=== PATIENT | female | born 1980 | race Hispanic/Latino ===

== ENCOUNTER 2017-04-02 10:06 | Inpatient (IN) | payer MEDICAID ==
[2017-04-02] MEDS ORDERED: Sodium Chloride 0.9% 1,000 ML IV STA (10:42)
--- NOTE | 2017-04-02 10:47 | ED PDOC ---
HPI: Chest Pain Time Seen by Provider: 04/02/17 10:28 Chief Complaint (Provider): Chest and Left Rib Pain History Per: Patient History/Exam Limitations: no limitations Onset/Duration Of Symptoms: Days (x 2-3 days) Current Symptoms Are (Timing): Still Present Additional Complaint(s): Cora is a 36 y/o female who presents to the ED complaining of difficulty breathing, chest pain, and left rib pain, onset 2-3 days ago. Patient also complains of cough, and has been getting over a cold. Also describes swelling to left hand and right arm for the past 1 week, and notes that a mouse bit her left finger 1 week ago. Self-medicating with clindamycin (leftover from old Rx) , Percocet, Tylenol, Advil, and Naprosyn. Patient reports history of chronic back pain and TMJ, which she is prescribed Percocet for. Pain is described as throbbing. Patient denies taking any medication for pain relief in the past 2 days. Denies headache, dizziness, abdominal pain, nausea, diarrhea, and vomiting. Patient requests pain medication. States that Toradol does not relieve her pain , and she needs Percocet. Patient told nurse that arm swelling was noticed after a spider bite, and states she has had arm surgery. PMD: Unknown Past Medical History Reviewed: Historical Data, Nursing Documentation, Vital Signs Vital Signs: Last Vital Signs Temp 101 F H 04/02/17 10:57 Pulse 112 H 04/02/17 10:57 Resp 18 04/02/17 10:57 BP 143/94 H 04/02/17 10:57 Pulse Ox 99 04/02/17 10:57 - Medical History PMH: Back Problems, Depression - Surgical History Surgical History: (x 1) - Family History Family History: States: Unknown Family Hx - Social History Drugs: Other (IV drug user, disontinued months ago) - Home Medications Home Medications: Ambulatory Orders Medication Instructions Recorded Amoxicillin 500 mg PO BID #14 cap 03/07/16 Fluconazole [Diflucan] 150 mg PO ONCE #1 tab 03/07/16 Clindamycin [Cleocin] 300 mg PO QID #40 cap 08/15/16 oxyCODONE/Acetaminophen [Percocet 1 ea PO Q6H PRN #15 tab 08/15/16 5/325 mg Tab] - Allergies Allergies/Adverse Reactions: Allergies Allergy/AdvReac Type Severity Reaction Status Date / Time No Known Drug Allergies Allergy Verified 08/15/16 03:03 Penicillins AdvReac yeast Verified 08/15/16 00:15 infection Review of Systems ROS Statement: Except As Marked, All Systems Reviewed And Found Negative Cardiovascular: Positive for: Chest Pain Respiratory: Positive for: Cough, Other (Difficulty breathing, left rib pain) Gastrointestinal: Negative for: Nausea, Vomiting, Abdominal Pain, Diarrhea Musculoskeletal: Positive for: Arm Pain (With left hand and right arm swelling) Neurological: Negative for: Headache, Dizziness Physical Exam - Reviewed Nursing Documentation Reviewed: Yes Vital Signs Reviewed: Yes - Physical Exam Appears: Positive for: Uncomfortable Head Exam: Positive for: ATRAUMATIC, NORMAL INSPECTION, NORMOCEPHALIC Skin: Positive for: Normal Color, Warm, Dry Eye Exam: Positive for: EOMI, Normal appearance, PERRL Neck: Positive for: Normal, Painless ROM, Supple Cardiovascular/Chest: Positive for: Regular Rate, Rhythm. Negative for: Chest Non Tender, Murmur Respiratory: Positive for: Normal Breath Sounds (Lungs clear bilaterally), Other (Left rib tenderness) Pulses-Radial (L): 2+ (and 2+ ulnar pulse) Pulses-Radial (R): 2+ (2+ ulnar pulse) Gastrointestinal/Abdominal: Positive for: Normal Exam, Soft. Negative for: Tenderness Back: Positive for: Normal Inspection. Negative for: Vertebral Tenderness Extremity: Positive for: Normal ROM (to legs), Swelling (Right forearm with indurated erythematous raised area, with tenderness, about 5-6 cm in diameter. Left hand is swollen, has pain with any ROM. No bite mohr noted. Streaks of erythema on left forearm.) Neurologic/Psych: Positive for: Alert, Oriented - Laboratory Results Result Diagrams: 04/02/17 11:44 04/02/17 11:44 Interpretation Of Abn Labs: 31.2 wbc - ECG ECG: Positive for: Interpreted By Me, Viewed By Me ECG Rhythm: Positive for: Normal QRS, Normal ST Segment, Sinus Tachycardia - Radiology X-Ray: Interpreted by Me, Viewed By Me X-Ray Interpretation: Infiltrates (LLL) - Progress ED Course And Treament: 1302: Stable. AAOx3. Pain controlled. Will need IV antibiotics for cellulitis and pneumonia. Will need admit. Meets sepsis criteria. 1307: Spoke with Dr. Degroot. Will admit tele. Likely IV drug use related cellulits. - Critical Care Total Time (In Min): 30 Documented Critical Care: Time excludes all time spent performint seperately billable procedures Medical Decision Making Medical Decision Making: Time: 10:41 Initial Impression: Chest and Left Rib pain Initial Plan: --Labs --EKG --CXR 2 views --NS IV 1000 ml at 1000 mls/hr --Dilaudid 1 mg IV --Pending reevaluation Time: 11:20 --Patient now admits she was an IV drug user, but stopped several months ago. --Ordered US Duplex Upper Extremities Time: 12:08 --Toxicology positive for urine opiates, cocaine metabolites, and cannabinoids Scribe Attestation: Documented by Cindy Ruano, acting as a scribe for Orion Shafer MD Provider Scribe Attestation: All medical record entries made by the Scribe were at my direction and personally dictated by me. I have reviewed the chart and agree that the record accurately reflects my personal performance of the history, physical exam, medical decision making, and the department course for this patient. I have also personally directed, reviewed, and agree with the discharge instructions and disposition. Disposition - Clinical Impression Clinical Impression: Pneumonia, Cellulitis, Sepsis, Drug abuse - Patient ED Disposition Is Patient to be Admitted: Yes Counseled Patient/Family Regarding: Studies Performed, Diagnosis - Disposition Disposition Time: 13:08 Condition: FAIR - Pt Status Changed To: Hospital Disposition Of: Inpatient - Admit Certification Admit to Inpatient:: After my assessment, the patient will require hospitalization for at least two midnights. This is because of the severity of symptoms shown, intensity of services needed, and/or the medical risk in this patient being treated as an outpatient. - POA Present On Arrival: None Core Measure Indicators: Pneumonia
[2017-04-02 11:52] LABS: VENOUS BLOOD GAS PCO2 40 mmHg (40-60); VENOUS BLOOD PH 7.43 (7.32-7.43)
[2017-04-02 12:09] LABS: BASO % 0.1 % (0.0-2.0); HEMATOCRIT 36.1 % (34.0-47.0); LYMPH # 0.6 K/uL (1.0-4.3); LYMPH % 1.9 % (20.0-40.0); MEAN CORPUSCULAR HEMOGLOBIN 27.3 pg (27.0-31.0); MEAN CORPUSCULAR HGB CONC 33.8 g/dL (33.0-37.0); MEAN PLATELET VOLUME 8.3 fl (7.2-11.7); MONO # 1.3 K/uL (0.0-0.8); MONO % 4.1 % (0.0-10.0); NEUT # 29.3 K/uL (1.8-7.0); NEUT % 93.9 % (50.0-75.0); PLATELET COUNT 369 K/uL (130-400); RED CELL DISTRIBUTION WIDTH 14.1 % (11.5-14.5)
[2017-04-02 12:18] LABS: RBC URINE 1 /hpf (0-3); URINE BILIRUBIN NEGATIVE (NEGATIVE); URINE BLOOD MODERATE (NEGATIVE); URINE COLOR AMBER (YELLOW); URINE GLUCOSE (UA) NEG (Normal); URINE KETONE 20 mg/dL (NEGATIVE); URINE LEUKOCYTE ESTERASE TRACE Leu/uL (Negative); URINE PROTEIN 100 mg/dL (NEGATIVE)
[2017-04-02 12:19] LABS: ALKALINE PHOSPHATASE 150 U/L (38-126); ALT/SGPT 42 U/L (9-52); AST/SGOT 26 U/L (14-36); BILIRUBIN,TOTAL 1.1 mg/dl (0.2-1.3); BLOOD UREA NITROGEN 7 mg/dl (7-17); CALCIUM 9.2 mg/dL (8.4-10.2); CARBON DIOXIDE 22 mmol/L (22-30); CHLORIDE 100 mmol/L (98-107); GFR AFRICAN-AMERICAN > 60; GLUCOSE,RANDOM 133 mg/dL (65-105); POTASSIUM 3.7 MMOL/L (3.6-5.0); SODIUM 135 mmol/l (132-148); TOTAL PROTEIN 8.2 G/DL (6.3-8.2)
[2017-04-02 12:29] LABS: WHITE BLOOD COUNT 31.2 K/uL (4.8-10.8)
[2017-04-02] MEDS ORDERED: Piperacillin/Tazobact 3.375 GM in Sodium Chloride 0.9% 100 ML IV STA (13:04)
--- NOTE | 2017-04-02 13:09 | US ---
PROCEDURE: Nonvascular ultrasound right upper extremity HISTORY: eval for abscess on forearm COMPARISON: None TECHNIQUE: Normal flow, augmentation and compressibility were noted. No evidence of deep vein thrombosis. FINDINGS: Considerable or soft tissue swelling right forearm. No drainable collection. IMPRESSION: Extensive soft tissue swelling right forearm. No vascular abnormalities identified nor is there evidence of drainable collection.
[2017-04-02] MEDS ORDERED: Piperacillin/Tazobact 3.375 gm Inj IVPB ONE (13:10)
--- NOTE | 2017-04-02 13:18 | US ---
PROCEDURE: Right Upper Extremity Venous Duplex Exam There was cell HISTORY: pain PRIORS: None. TECHNIQUE: Right upper extremity, internal jugular, subclavian, axillary, brachial, ulnar, radial, basilic and upper cephalic veins were evaluated. Flow was assessed with color Doppler, compressibility, assessment of phasic flow and augmentation response. Report prepared by cardiovascular radiologic technologist. FINDINGS: RIGHT: 1. Internal Jugular: 1.1. Compressibility - Fully compressible: Thrombus - None : Flow - Phasic: Augmentation -Normal: Reflux - None. 2. Subclavian: 2.1. Compressibility - Fully compressible: Thrombus - None : Flow - Phasic: Augmentation -Normal: Reflux - None. 3. Axillary: 3.1. Compressibility - Fully compressible: Thrombus - None : Flow - Phasic: Augmentation -Normal: Reflux - None. 4. Brachial: 4.1. Compressibility - Fully compressible: Thrombus - None: Flow - Phasic: Augmentation -Normal: Reflux - None. 5. Ulnar: 5.1. Compressibility - Fully compressible: Thrombus - None: Flow - Phasic: Augmentation -Normal: Reflux - None. 6. Radial: 6.1. Compressibility - Fully compressible: Thrombus - None: Flow - Phasic: Augmentation - Normal: Reflux - None. 7. Cephalic: 7.1. Not identified. 8. Basilic: 8.1. Compressibility - Fully compressible: Thrombus - None: Flow - Phasic: Augmentation -Normal: Reflux - None. OTHER FINDINGS: Right: None. IMPRESSION: Right: No evidence of vein thrombosis of the right upper extremity with excellent venous flow. Normal valve function noted of the right side. Limitations of the current examination: Nonvisualization left cephalic vein. Normal venous flow noted in the left internal jugular and left subclavian veins.
--- NOTE | 2017-04-02 14:58 | CP.PCM.HP ---
History of Present Illness - History of Present Illness History of Present Illness: CC: arm pain HPI This is a 36-year-old female with past medical history significant for IV drug abuse, polysubstance abuse who presents to the emergency room with a several week history? of bilateral upper extremity swelling, erythema, moderate to severe pain, sharp and stabbing in nature, with limited range of motion. Patient appears to be an unreliable historian. She states that she sustained a bite by a mouse, but also was injecting heroin and began to experience the erythema and pain about a week after. Patient also complained of upper respiratory infection symptoms. In the emergency room ultrasound and Dopplers of upper extremities were negative, and Zosyn and Vancomycin were initiated. Patient was febrile 101, tachycardic at 112 blood pressure 143/94 respiratory rate 16. She is saturating 100% on room air. WBC 31.2, chemistry unremarkable, urine also unremarkable, urine drug screen was positive for opiates, cocaine as well as cannabinoids. Chest x-ray showed left lower lobe infiltrate. Patient will be admitted to [facility] for IV antibiotics for both cellulitis of bilateral upper extremities as well as left lower lobe pneumonia. ROS: per HPI, 12 systems reviewed and negative PMH: denies PSH: c section FH: denies SH: admits to cocaine, heroin, marijuana use Meds: as below Allergies: PCN Vitals: reviewed and currently stable Exam: GEN: WDWN, alert, cooperative HEENT: NCAT, PERRL, EOMI NECK: supple, no JVD, no lymphadenopathy CARDIAC: +S1S2 RRR LUNG: CTAB No WRR ABD: SOFT NT ND BSX4 NO MASSES NO HSM EXT: equal pulses bilaterally, R Forearm area of cellulitic changes, erythema induration no fluctuation, edematous, LUE / hand, cellulitic changes, erythmatous and tender with streaking up the arm NEURO: AAOx3 SKIN warm, dry PSYCH normal mood, normal affect Labs: 04/02/17 04/02/17 04/02/17 11:56 11:45 11:44 WBC RBC Hgb Hct MCV MCH MCHC RDW Plt Count MPV Neut % (Auto) Lymph % (Auto) [place] % (Auto) Eos % (Auto) Baso % (Auto) Neut # Lymph # [place] # Eos # Baso # Neutrophils % (Manual) Band Neutrophils % Lymphocytes % (Manual) Monocytes % (Manual) Basophils % (Manual) Platelet Estimate Large Platelets Anisocytosis (manual) pO2 37 VBG pH 7.43 VBG pCO2 40 VBG HCO3 25.8 VBG Total CO2 27.7 VBG O2 Sat (Calc) 77.8 H VBG Base Excess 2.0 VBG Potassium 3.7 Glucose 139 H Lactate 1.1 FiO2 21.0 Sodium 133.0 135 Potassium 3.7 Chloride 102.0 100 Carbon Dioxide 22 Anion Gap 16 BUN 7 Creatinine 0.6 L Est GFR ( Amer) > 60 Est GFR (Non-Af Amer) > 60 Random Glucose 133 H Calcium 9.2 Total Bilirubin 1.1 AST 26 ALT 42 Alkaline Phosphatase 150 H Total Creatine Kinase 54 Troponin I < 0.0120 Total Protein 8.2 Albumin 4.2 Globulin 4.1 H Albumin/Globulin Ratio 1.0 Venous Blood Potassium 3.7 Urine Color Kya Urine Clarity Slighty-cloudy Urine pH 6.0 Ur Specific [place] 1.024 Urine Protein 100 Urine Glucose (UA) Neg Urine Ketones 20 Urine Blood Moderate Urine Nitrate Negative Urine Bilirubin Negative Urine Urobilinogen 4.0 H Ur Leukocyte Esterase Trace Urine RBC (Auto) 1 Urine Opiates Screen Urine Methadone Screen Ur Barbiturates Screen Ur Phencyclidine Scrn Ur Amphetamines Screen U Benzodiazepines Scrn U Oth Cocaine Metabols U Cannabinoids Screen 04/02/17 04/02/17 11:44 11:19 WBC 31.2 H D RBC 4.46 Hgb 12.2 Hct 36.1 MCV 81.0 D MCH 27.3 MCHC 33.8 RDW 14.1 Plt Count 369 MPV 8.3 Neut % (Auto) 93.9 H Lymph % (Auto) 1.9 L [place] % (Auto) 4.1 Eos % (Auto) 0.0 Baso % (Auto) 0.1 Neut # 29.3 H Lymph # 0.6 L [place] # 1.3 H Eos # 0.0 Baso # 0.0 Neutrophils % (Manual) 86 H Band Neutrophils % 2 Lymphocytes % (Manual) 5 L Monocytes % (Manual) 6 Basophils % (Manual) 1 Platelet Estimate Normal Large Platelets Present Anisocytosis (manual) Slight pO2 VBG pH VBG pCO2 VBG HCO3 VBG Total CO2 VBG O2 Sat (Calc) VBG Base Excess VBG Potassium Glucose Lactate FiO2 Sodium Potassium Chloride Carbon Dioxide Anion Gap BUN Creatinine Est GFR ( Amer) Est GFR (Non-Af Amer) Random Glucose Calcium Total Bilirubin AST ALT Alkaline Phosphatase Total Creatine Kinase Troponin I Total Protein Albumin Globulin Albumin/Globulin Ratio Venous Blood Potassium Urine Color Urine Clarity Urine pH Ur Specific [place] Urine Protein Urine Glucose (UA) Urine Ketones Urine Blood Urine Nitrate Urine Bilirubin Urine Urobilinogen Ur Leukocyte Esterase Urine RBC (Auto) Urine Opiates Screen Positive H Urine Methadone Screen Negative Ur Barbiturates Screen Negative Ur Phencyclidine Scrn Negative Ur Amphetamines Screen Negative U Benzodiazepines Scrn Negative U Oth Cocaine Metabols Positive H U Cannabinoids Screen Positive H Rads: CXR LLL PNA US UPPER EXTREMITY SOFT TISSUE SWELLING DOPPLER NEGATIVE FOR THROMBUS Active Medications: Allergies No Known Drug Allergies Allergy (Verified 08/15/16 03:03) Penicillins Adverse Reaction (Verified 08/15/16 00:15) yeast infection Height & Weight Height 5 ft 3 in Weight 150 lb Start Date/Time Active Medications 04/02/17 14:58 Ketorolac [Toradol] 30 mg IVP Q6 PRN 04/02/17 14:59 Ketorolac [Toradol] 15 mg IVP Q6 PRN 04/02/17 15:00 Ibuprofen [Motrin Tab] 400 mg PO Q6 PRN Ibuprofen [Motrin Tab] 400 mg PO Q6H PRN Ondansetron [Zofran Inj] 4 mg IVP Q6 PRN 04/02/17 17:00 Docusate [Colace] 100 mg PO BID 04/02/17 21:00 Vancomycin [Vancomycin Inj] 1 gm Sodium Chloride 0.9% 250 ml IVPB Q12 04/03/17 09:00 Enoxaparin [Lovenox] 40 mg SC DAILY Assessment and Plan: This is a 36-year-old female with past medical history significant for IV drug abuse, polysubstance abuse who presents to the emergency room with a several week history? of bilateral upper extremity swelling, erythema, moderate to severe pain, sharp and stabbing in nature, with limited range of motion. Patient appears to be an unreliable historian. She states that she sustained a bite by a mouse, but also was injecting heroin and began to experience the erythema and pain about a week after. Patient also complained of upper respiratory infection symptoms. In the emergency room ultrasound and Dopplers of upper extremities were negative, and Zosyn and Vancomycin were initiated. Patient was febrile 101, tachycardic at 112 blood pressure 143/94 respiratory rate 16. She is saturating 100% on room air. WBC 31.2, chemistry unremarkable, urine also unremarkable, urine drug screen was positive for opiates, cocaine as well as cannabinoids. Chest x-ray showed left lower lobe infiltrate. Patient will be admitted to [facility] for IV antibiotics for both cellulitis of bilateral upper extremities as well as left lower lobe pneumonia. CELLULITIS BILATERAL FOREARMS 2/2 DRUG RELATED SEPSIS R>L, erythematous, induration, no fluctuant areas, L sided streaking up forearm WBC 31.2. tachy 112, febrile 101 on admission US and Dopplers were negative initiated on Vanc and Zosyn day 1 Pain control: Toradol for mod and severe pain, Motrin for mild pain LLL PNEUMONIA URI sx for about one week CXR +infiltrate LL febrile, WBC 31.2 on admission pt on Vanc and Zosyn coverage for cellulitis Hx IVDU, POLYSUBSTANCE ABUSE patient given toradol for pain control no current signs of withdrawal UDS + opioids, cocaine, cannabinoids VTE ppx lovenox Present on Admission - Present on Admission Any Indicators Present on Admission: No Past Patient History - Infectious Disease Hx of Infectious Diseases: None - Past Social History Drugs: Other (IV drug user, disontinued months ago) - GASTROINTESTINAL Hx Irritable Bowel: Yes - PSYCHIATRIC Hx Depression: Yes - SURGICAL HISTORY Hx Surgeries: Yes Hx Section: Yes Other/Comment: right arm surgery - ANESTHESIA Hx Anesthesia: Yes Meds Allergies/Adverse Reactions: Allergies Allergy/AdvReac Type Severity Reaction Status Date / Time No Known Drug Allergies Allergy Verified 08/15/16 03:03 Penicillins AdvReac yeast Verified 08/15/16 00:15 infection Results - Vital Signs Recent Vital Signs: Last Vital Signs Temp 101 F H 04/02/17 13:16 Pulse 112 H 04/02/17 10:57 Resp 18 04/02/17 10:57 BP 143/94 H 04/02/17 10:57 Pulse Ox 99 04/02/17 10:57 - Labs Result Diagrams: 04/02/17 11:44 04/02/17 11:44
[2017-04-02 15:04] LABS: BASOPHIL 1 % (0-2); LARGE PLATELETS PRESENT; NEUTROPHIL 86 % (42-75); TOTAL CELLS COUNTED 100
--- NOTE | 2017-04-02 16:08 | RAD ---
HISTORY: dyspnea COMPARISON: Chest x-ray performed 03/07/16 TECHNIQUE: Chest PA and lateral FINDINGS: LUNGS: Small left pleural effusion and/or consolidation. No definite pneumothorax. Please note that chest x-ray has limited sensitivity for the detection of pulmonary masses. CARDIOVASCULAR: Heart size appears within normal limits. OSSEOUS STRUCTURES: No acute osseous abnormality identified. VISUALIZED UPPER ABDOMEN: Unremarkable. OTHER FINDINGS: None. IMPRESSION: Small left pleural effusion and/or consolidation. Study has been marked for PA review.
--- NOTE | 2017-04-02 16:51 | CARD ---
APPROVED REPORT EKG Measurement Heart [id number] <Conclusion> Sinus tachycardia Possible Left atrial enlargement Borderline ECG
[2017-04-03 07:47] LABS: BASO % 0.1 % (0.0-2.0); HEMATOCRIT 35.1 % (34.0-47.0); LYMPH # 0.7 K/uL (1.0-4.3); LYMPH % 2.7 % (20.0-40.0); MEAN CELL VOLUME 81.9 fl (81.0-99.0); MEAN CORPUSCULAR HEMOGLOBIN 27.4 pg (27.0-31.0); MEAN CORPUSCULAR HGB CONC 33.5 g/dL (33.0-37.0); MEAN PLATELET VOLUME 8.1 fl (7.2-11.7); MONO # 1.2 K/uL (0.0-0.8); MONO % 4.4 % (0.0-10.0); NEUT # 24.5 K/uL (1.8-7.0); NEUT % 92.8 % (50.0-75.0); PLATELET COUNT 370 K/uL (130-400); RED CELL DISTRIBUTION WIDTH 14.3 % (11.5-14.5); WHITE BLOOD COUNT 26.4 K/uL (4.8-10.8)
[2017-04-03 07:59] LABS: BLOOD UREA NITROGEN 10 mg/dl (7-17); CALCIUM 8.9 mg/dL (8.4-10.2); CARBON DIOXIDE 22 mmol/L (22-30); CHLORIDE 103 mmol/L (98-107); GFR AFRICAN-AMERICAN > 60; GLUCOSE,RANDOM 138 mg/dL (65-105); POTASSIUM 3.6 MMOL/L (3.6-5.0); SODIUM 135 mmol/l (132-148)
[2017-04-03 08:49] LABS: NEUTROPHIL 94 % (42-75); TOTAL CELLS COUNTED 100
[2017-04-03] MEDS: Enoxaparin 40 mg Syringe SC SCH (11:13)
--- NOTE | 2017-04-03 15:24 | CP.PCM.PN ---
Subjective - Date & Time of Evaluation Date of Evaluation: 04/03/17 Time of Evaluation: 10:40 - Subjective Subjective: Pt seen and examined. Complained of pain specially on movement of left arm although right arm appeared more swollen and red. Objective - Vital Signs/Intake and Output Vital Signs (last 24 hours): Temp Pulse Resp BP Pulse Ox 99.7 F H 103 H 20 134/88 94 L 04/03/17 08:20 04/03/17 08:20 04/03/17 08:20 04/03/17 08:20 04/03/17 08:20 - Medications Medications: Current Medications Docusate Sodium (Colace) 100 mg PO BID [facility] Last Admin: 04/03/17 11:18 Dose: Not Given Enoxaparin Sodium (Lovenox) 40 mg SC DAILY [facility] PRN Reason: Protocol Last Admin: 04/03/17 11:13 Dose: 40 mg Vancomycin HCl 1 gm/ Sodium (Chloride) 250 mls @ 166.667 mls/hr IVPB Q12 [facility] Last Admin: 04/03/17 11:38 Dose: 166.667 mls/hr Ibuprofen (Motrin Tab) 400 mg PO Q6H PRN PRN Reason: Pain, Mild (1-3) Last Admin: 04/02/17 22:27 Dose: 400 mg Ibuprofen (Motrin Tab) 400 mg PO Q6 PRN PRN Reason: Fever >100.4 F Ketorolac Tromethamine (Toradol) 30 mg IVP Q6 PRN PRN Reason: Pain, severe (8-10) Last Admin: 04/02/17 15:26 Dose: 30 mg Ketorolac Tromethamine (Toradol) 15 mg IVP Q6 PRN PRN Reason: Pain, moderate (4-7) Ondansetron HCl (Zofran Inj) 4 mg IVP Q6 PRN PRN Reason: Nausea/Vomiting - Labs Labs: 04/03/17 07:30 04/03/17 07:30 - Constitutional Appears: No Acute Distress - Head Exam Head Exam: ATRAUMATIC - Eye Exam Eye Exam: absent: Scleral icterus - ENT Exam ENT Exam: Mucous Membranes Moist - Neck Exam Neck Exam: absent: Meningismus - Respiratory Exam Respiratory Exam: absent: Rhonchi, Wheezes, Respiratory Distress - Cardiovascular Exam Cardiovascular Exam: REGULAR RHYTHM, +S1, +S2 - GI/Abdominal Exam GI & Abdominal Exam: Soft. absent: Tenderness - Rectal Exam Rectal Exam: Deferred - Extremities Exam Extremities Exam: absent: Normal Inspection (both arms swollen but right arm appeared more inflammed.) - Neurological Exam Neurological Exam: Alert, Oriented x3 - Psychiatric Exam Psychiatric exam: Normal Affect - Skin Skin Exam: Dry, Intact Assessment and Plan - Assessment and Plan (Free Text) Assessment: 36 yo female with history of IV drug abuse came in with bilateral arm swelling with pain and erythema limiting her ROM. She claimed she used her arm shooting heroin a week before the onset of symptoms. She was admitted with cellulitis of both arms and was noted to have fever and tachycardia. 1. Cellulitis of Both Arms still tachycardic with low grade fever WBC remained high at 26.4 but coming down from 31.2 continue IV Vanco and Zosyn pain management 2. Pneumonia denied SOB but admitted left sided chest pain on coughing CXray: small left pleural effusion or consolidation continue IV Vanco and Zosyn Vanco trough in am 3. DVT prophylaxis Lovenox 40mg SC daily
[2017-04-03 15:27] VITALS: BMI 26.5
--- NOTE | 2017-04-03 16:18 | CT ---
PROCEDURE: CT Chest without contrast HISTORY: left lower lobe pneumonia or pleural effusion COMPARISON: April 02, 2017. Chest x-ray TECHNIQUE: Contiguous axial images were obtained through the chest without intravenous contrast enhancement. Sagittal and coronal reconstructions were performed. Radiation dose (DLP): 198.85 mGy-cm. This CT exam was performed using one or more of the following dose reduction techniques: Automated exposure control, adjustment of the mA and/or kV according to patient size, and/or use of iterative reconstruction technique. FINDINGS: LUNGS: Consolidative changes multiple segments left lower lobe. Findings are likely compressive atelectasis related to left pleural effusion. MEDIASTINUM: Unremarkable thoracic aorta. No aneurysm. Normal sized heart. Main pulmonary artery unremarkable. No vascular congestion. No lymphadenopathy. PLEURA: Auto size and partially loculated left pleural effusion. Associated compressive atelectasis left lower lobe. BONES: No fracture. No destructive lesion. UPPER ABDOMEN: Grossly unremarkable. OTHER FINDINGS: None. IMPRESSION: Complex, partially loculated left pleural effusion. Associated compressive atelectasis affecting multiple segments of the left lower lobe. No additional suspicious or acute abnormalities.
[2017-04-04] MEDS: Enoxaparin 40 mg Syringe SC SCH (09:23)
--- NOTE | 2017-04-04 15:32 | CP.PCM.PN ---
Subjective - Date & Time of Evaluation Date of Evaluation: 04/04/17 Time of Evaluation: 10:45 - Subjective Subjective: Pt seen and examined. Feeling better Objective - Vital Signs/Intake and Output Vital Signs (last 24 hours): Temp Pulse Resp BP Pulse Ox 99.6 F 91 H 18 135/85 96 04/04/17 07:46 04/04/17 07:46 04/04/17 07:46 04/04/17 07:46 04/04/17 07:46 - Medications Medications: Current Medications Docusate Sodium (Colace) 100 mg PO BID [facility] Last Admin: 04/04/17 09:23 Dose: Not Given Enoxaparin Sodium (Lovenox) 40 mg SC DAILY [facility] PRN Reason: Protocol Last Admin: 04/04/17 09:23 Dose: 40 mg Vancomycin HCl 1 gm/ Sodium (Chloride) 250 mls @ 166.667 mls/hr IVPB Q12 [facility] Last Admin: 04/04/17 09:24 Dose: 166.667 mls/hr Ibuprofen (Motrin Tab) 400 mg PO Q6H PRN PRN Reason: Pain, Mild (1-3) Last Admin: 04/04/17 09:25 Dose: 400 mg Ibuprofen (Motrin Tab) 400 mg PO Q6 PRN PRN Reason: Fever >100.4 F Ketorolac Tromethamine (Toradol) 30 mg IVP Q6 PRN PRN Reason: Pain, severe (8-10) Last Admin: 04/02/17 15:26 Dose: 30 mg Ketorolac Tromethamine (Toradol) 15 mg IVP Q6 PRN PRN Reason: Pain, moderate (4-7) Ondansetron HCl (Zofran Inj) 4 mg IVP Q6 PRN PRN Reason: Nausea/Vomiting Zolpidem Tartrate (Ambien) 5 mg PO HS PRN PRN Reason: Sleep Last Admin: 04/04/17 01:51 Dose: 5 mg - Labs Labs: 04/03/17 07:30 04/03/17 07:30 - Constitutional Appears: No Acute Distress - Head Exam Head Exam: ATRAUMATIC - Eye Exam Eye Exam: absent: Scleral icterus - ENT Exam ENT Exam: Mucous Membranes Moist - Neck Exam Neck Exam: absent: Meningismus - Respiratory Exam Respiratory Exam: absent: Rhonchi, Wheezes, Respiratory Distress - Cardiovascular Exam Cardiovascular Exam: REGULAR RHYTHM, +S1, +S2 - GI/Abdominal Exam GI & Abdominal Exam: Soft. absent: Tenderness - Rectal Exam Rectal Exam: Deferred - Neurological Exam Neurological Exam: Alert, Oriented x3 - Psychiatric Exam Psychiatric exam: Normal Affect - Skin Skin Exam: Dry, Intact Assessment and Plan - Assessment and Plan (Free Text) Assessment: 36 yo female with history of IV drug abuse came in with bilateral arm swelling with pain and erythema limiting her ROM. She claimed she used her arm shooting heroin a week before the onset of symptoms. She was admitted with cellulitis of both arms and was noted to have fever and tachycardia. 1. Cellulitis of Both Arms had low grade fever in the direct support professional home health continue IV Vanco and Zosyn pain management will discharge in am if she continue to be afebrile until tomotrrow 2. Pneumonia denied SOB but admitted left sided chest pain on coughing CXray: small left pleural effusion or consolidation CT scan of chest: left loculated pleural effusion continue IV Vanco and Zosyn Vanco trough <5 3. Gram + Cocci in Cluster in urine patient did not mention any urinary complaint on Vanco and Zosyn which cover gram + cocci 4. DVT prophylaxis Lovenox 40mg SC daily
[2017-04-04 16:24] LABS: BASO % 0.1 % (0.0-2.0); EOS % 0.1 % (0.0-4.0); HEMATOCRIT 33.1 % (34.0-47.0); LYMPH # 1.3 K/uL (1.0-4.3); LYMPH % 6.6 % (20.0-40.0); MEAN CELL VOLUME 81.4 fl (81.0-99.0); MEAN CORPUSCULAR HEMOGLOBIN 26.8 pg (27.0-31.0); MEAN CORPUSCULAR HGB CONC 32.9 g/dL (33.0-37.0); MEAN PLATELET VOLUME 7.9 fl (7.2-11.7); MONO # 1.5 K/uL (0.0-0.8); MONO % 7.5 % (0.0-10.0); NEUT # 17.3 K/uL (1.8-7.0); NEUT % 85.7 % (50.0-75.0); NRBC % 0.1 % (0.0-0.0); WHITE BLOOD COUNT 20.2 K/uL (4.8-10.8)
[2017-04-04] MEDS: Vancomycin 1.5 GM in Sodium Chloride 0.9% 500 ML IVPB SCH (21:26)
[2017-04-05 07:30] VITALS: BP 133/79; PULSE 83; RESP 18; TEMP 99.3; O2SAT 95
[2017-04-05 07:59] LABS: BASO % 0.4 % (0.0-2.0); EOS % 0.1 % (0.0-4.0); LYMPH # 1.5 K/uL (1.0-4.3); LYMPH % 12.2 % (20.0-40.0); MEAN CELL VOLUME 81.2 fl (81.0-99.0); MEAN CORPUSCULAR HEMOGLOBIN 27.3 pg (27.0-31.0); MEAN CORPUSCULAR HGB CONC 33.6 g/dL (33.0-37.0); MEAN PLATELET VOLUME 8.1 fl (7.2-11.7); NEUT # 9.7 K/uL (1.8-7.0); NEUT % 79.3 % (50.0-75.0); RED CELL DISTRIBUTION WIDTH 14.1 % (11.5-14.5); WHITE BLOOD COUNT 12.2 K/uL (4.8-10.8)
[2017-04-05] MEDS: Enoxaparin 40 mg Syringe SC SCH (10:15)
[2017-04-05] MEDS: Vancomycin 1.5 GM in Sodium Chloride 0.9% 500 ML IVPB SCH (10:15)
--- NOTE | 2017-04-05 15:17 | CP.PCM.DIS ---
Provider - Provider Date of Admission: 04/02/17 13:10 Attending physician: Jasmyn Degroot DO Time Spent in preparation of Discharge (in minutes): 35 Diagnosis - Discharge Diagnosis (1) Cellulitis Status: Acute Comment: has been afebrile more than 24 hrs. WBC down to 12.2. continue Clindamycin and Bacid until consumed (2) Pneumonia Status: Acute Comment: CT scan showed loculated pleural effusion on the left. received 3 days of IV Vanco (3) IV drug user Status: Acute Comment: given advised but probably fell on deaf ears. Hospital Course - Lab Results Lab Results: Most Recent Lab Values WBC 12.2 K/uL (4.8-10.8) H 04/05/17 06:00 RBC 4.31 Mil/uL (3.80-5.20) 04/05/17 06:00 Hgb 11.7 g/dL (12.0-16.0) L 04/05/17 06:00 Hct 35.0 % (34.0-47.0) 04/05/17 06:00 MCV 81.2 fl (81.0-99.0) 04/05/17 06:00 MCH 27.3 pg (27.0-31.0) 04/05/17 06:00 MCHC 33.6 g/dL (33.0-37.0) 04/05/17 06:00 RDW 14.1 % (11.5-14.5) 04/05/17 06:00 Plt Count 428 K/uL (130-400) H 04/05/17 06:00 MPV 8.1 fl (7.2-11.7) 04/05/17 06:00 Neut % (Auto) 79.3 % (50.0-75.0) H 04/05/17 06:00 Lymph % (Auto) 12.2 % (20.0-40.0) L 04/05/17 06:00 Moody % (Auto) 8.0 % (0.0-10.0) 04/05/17 06:00 Eos % (Auto) 0.1 % (0.0-4.0) 04/05/17 06:00 Baso % (Auto) 0.4 % (0.0-2.0) 04/05/17 06:00 Neut # 9.7 K/uL (1.8-7.0) H 04/05/17 06:00 Lymph # 1.5 K/uL (1.0-4.3) 04/05/17 06:00 Moody # 1.0 K/uL (0.0-0.8) H 04/05/17 06:00 Eos # 0.0 K/uL (0.0-0.7) 04/05/17 06:00 Baso # 0.0 K/uL (0.0-0.2) 04/05/17 06:00 Neutrophils % (Manual) 94 % (42-75) H 04/03/17 07:30 Band Neutrophils % 2 % (0-2) 04/02/17 11:44 Lymphocytes % (Manual) 4 % (20-50) L 04/03/17 07:30 Monocytes % (Manual) 2 % (0-10) 04/03/17 07:30 Basophils % (Manual) 1 % (0-2) 04/02/17 11:44 Platelet Estimate Normal (NORMAL) 04/03/17 07:30 Large Platelets Present 04/02/17 11:44 Anisocytosis (manual) Slight 04/02/17 11:44 pO2 37 mm/Hg (30-55) 04/02/17 11:45 VBG pH 7.43 (7.32-7.43) 04/02/17 11:45 VBG pCO2 40 mmHg (40-60) 04/02/17 11:45 VBG HCO3 25.8 mmol/L 04/02/17 11:45 VBG Total CO2 27.7 mmol/L (22-28) 04/02/17 11:45 VBG O2 Sat (Calc) 77.8 % (40-65) H 04/02/17 11:45 VBG Base Excess 2.0 mmol/L (0.0-2.0) 04/02/17 11:45 VBG Potassium 3.7 mmol/L (3.6-5.2) 04/02/17 11:45 Sodium 133.0 mmol/L (132-148) 04/02/17 11:45 Chloride 102.0 mmol/L (98-107) 04/02/17 11:45 Glucose 139 mg/dL (65-105) H 04/02/17 11:45 Lactate 1.1 mmol/L (0.7-2.1) 04/02/17 11:45 FiO2 21.0 % 04/02/17 11:45 Sodium 135 mmol/l (132-148) 04/03/17 07:30 Potassium 3.6 MMOL/L (3.6-5.0) 04/03/17 07:30 Chloride 103 mmol/L (98-107) 04/03/17 07:30 Carbon Dioxide 22 mmol/L (22-30) 04/03/17 07:30 Anion Gap 13 (10-20) 04/03/17 07:30 BUN 10 mg/dl (7-17) 04/03/17 07:30 Creatinine 0.5 mg/dL (0.7-1.2) L 04/03/17 07:30 Est GFR ( Amer) > 60 04/03/17 07:30 Est GFR (Non-Af Amer) > 60 04/03/17 07:30 POC Glucose (mg/dL) 137 mg/dL (65-110) H 04/03/17 11:08 Random Glucose 138 mg/dL (65-105) H 04/03/17 07:30 Calcium 8.9 mg/dL (8.4-10.2) 04/03/17 07:30 Total Bilirubin 1.1 mg/dl (0.2-1.3) 04/02/17 11:44 AST 26 U/L (14-36) 04/02/17 11:44 ALT 42 U/L (9-52) 04/02/17 11:44 Alkaline Phosphatase 150 U/L (38-126) H 04/02/17 11:44 Total Creatine Kinase 54 U/L (30-135) 04/02/17 11:44 Troponin I < 0.0120 ng/mL (0.00-0.120) 04/02/17 11:44 Total Protein 8.2 G/DL (6.3-8.2) 04/02/17 11:44 Albumin 4.2 g/dL (3.5-5.0) 04/02/17 11:44 Globulin 4.1 gm/dL (2.2-3.9) H 04/02/17 11:44 Albumin/Globulin Ratio 1.0 (1.0-2.1) 04/02/17 11:44 Venous Blood Potassium 3.7 mmol/L (3.6-5.2) 04/02/17 11:45 Urine Color Kya (YELLOW) 04/02/17 11:56 Urine Clarity Slighty-cloudy (Clear) 04/02/17 11:56 Urine pH 6.0 (5.0-8.0) 04/02/17 11:56 Ur Specific [place] 1.024 (1.003-1.030) 04/02/17 11:56 Urine Protein 100 mg/dL (NEGATIVE) 04/02/17 11:56 Urine Glucose (UA) Neg mg/dL (Normal) 04/02/17 11:56 Urine Ketones 20 mg/dL (NEGATIVE) 04/02/17 11:56 Urine Blood Moderate (NEGATIVE) 04/02/17 11:56 Urine Nitrate Negative (NEGATIVE) 04/02/17 11:56 Urine Bilirubin Negative (NEGATIVE) 04/02/17 11:56 Urine Urobilinogen 4.0 mg/dL (0.2-1.0) H 04/02/17 11:56 Ur Leukocyte Esterase Trace Ginger/uL (Negative) 04/02/17 11:56 Urine RBC (Auto) 1 /hpf (0-3) 04/02/17 11:56 Vancomycin Trough < 5.0 ug/mL (5.0-10.0) L 04/04/17 09:34 Urine Opiates Screen Positive (NEGATIVE) H 04/02/17 11:19 Urine Methadone Screen Negative (NEGATIVE) 04/02/17 11:19 Ur Barbiturates Screen Negative (NEGATIVE) 04/02/17 11:19 Ur Phencyclidine Scrn Negative (NEGATIVE) 04/02/17 11:19 Ur Amphetamines Screen Negative (NEGATIVE) 04/02/17 11:19 U Benzodiazepines Scrn Negative (NEGATIVE) 04/02/17 11:19 U Oth Cocaine Metabols Positive (NEGATIVE) H 04/02/17 11:19 U Cannabinoids Screen Positive (NEGATIVE) H 04/02/17 11:19 - Hospital Course Hospital Course: 36 yo female with history of IV drug abuse came in with bilateral arm swelling with pain and erythema limiting her ROM. She claimed she has been using her arms shooting heroin. Pt was admitted with cellulitis of both arms and was put on IV Vancomycin. She did well and now was discharged in stable condition. Discharge Exam - Head Exam Head Exam: ATRAUMATIC - Eye Exam Eye Exam: absent: Scleral icterus - ENT Exam ENT Exam: Mucous Membranes Moist - Respiratory Exam Respiratory Exam: Decreased Breath Sounds. absent: Wheezes, Respiratory Distress - Cardiovascular Exam Cardiovascular Exam: REGULAR RHYTHM, +S1, +S2 - GI/Abdominal Exam GI & Abdominal Exam: Soft. absent: Tenderness - Rectal Exam Rectal Exam: Deferred - Back Exam Back exam: NORMAL INSPECTION - Neurological Exam Neurological exam: Alert, Oriented x3 - Psychiatric Exam Psychiatric exam: Normal Affect - Skin Skin Exam: Dry, Intact Discharge Plan - Discharge Medications Prescriptions: Clindamycin [Cleocin] 450 mg PO TID #30 ml Lactobacillus Acidophilus [Bacid Acidophilus] 1 cap PO BID #20 cap - Follow Up Plan Condition: FAIR Disposition: HOME/ ROUTINE Instructions: Cellulitis (DC), Simple Eosinophilic Pneumonia (DC) Additional Instructions: Apply warm soaks to cellulitic areas Referrred to [phone]
[2017-04-05] MEDS ORDERED: Lactobacillus Acidophilus 500 MU Cap PO SCH (17:00)
--- NOTE | 2017-04-08 07:55 | PQF SEPSIS ---
Dr. Degroot sepsis was documented in History and Physical but not in Discharge Summary. Was diagnosis of sepsis ruled in or out? This form is a permanent part of the medical record Clarification of your documentation is requested to better reflect the severity of illness and intensity of treatment of your patient. Indicators present [] Temp < 96.8 or > 100.4 [] WBC count > 12,000/mm3 or <000/mm3 or 10% immature neutrophils [x] Heart Rate > 90 [] Respiratory Rate > 20 [] Fever or hypothermia [] Chills [] Positive blood cultures [] Hypotension [] Metabolic acidosis (Elevated lactate level, anion gap or reduced blood pH) [] Acute confusion /Altered Mental Status [] Shock [] Other: [] Location in the medical record that reflects the above clinical findings: [] Treatment Provided: [] PHYSICIAN'S RESPONSE Based on your medical judgment of the clinical indicators outlined above, are you treating this patient for a known or suspected: [] Sepsis / Septicemia Please specify organism if known [] [] SIRS (Systemic Inflammatory Response Syndrome) [] Severe Sepsis (Sepsis with Associated Organ Dysfunction) [] Fever of Unknown Origin [] Other, please indicate: [] [] If Unable to Determine, please check the box, sign and date. Present On Admission (POA) Indicator: [] Present at the time of admission [] Not present at the time of admission [] Clinically Undetermined In responding to this query, please exercise your independent professional judgment. The fact that a question is asked does not imply that any particular answer is desired or expected. Thank you for your clarification on this documentation. If you have any questions please call:[ ] * Thank you, [ ]Kira Garber inventory clerk [employer]
== END 2017-04-05 10:53 | disposition home or self-care (01) | DRG 871 ==
LOC: H.ER 10:06 → H.ERHOLD 13:10 → H.MEDSURG1 17:23
PROVIDERS: ADMIT Student in an Organized Health Care Education/Training Program; ATTEND Student in an Organized Health Care Education/Training Program
DX: A41.9 Sepsis, unspecified organism (principal); J18.9 Pneumonia, unspecified organism; L03.114 Cellulitis of left upper limb; L03.113 Cellulitis of right upper limb; F12.10 Cannabis abuse, uncomplicated; F11.10 Opioid abuse, uncomplicated; F14.10 Cocaine abuse, uncomplicated; Z88.0 Allergy status to penicillin; G89.29 Other chronic pain

== ENCOUNTER 2017-10-31 19:07 | Emergency (ER) | payer SELFPAY ==
[2017-10-31 19:07] VITALS: BMI 26.5
[2017-10-31 19:19] VITALS: BP 167/92; TEMP 98.3
[2017-10-31 20:11] VITALS: PULSE 94; RESP 21; O2SAT 99
--- NOTE | 2017-10-31 22:31 | ED PDOC ---
HPI: Psych/Substance Abuse Time Seen by Provider: 10/31/17 19:15 Chief Complaint (Nursing): Substance Abuse Chief Complaint (Provider): Possible Substance Abuse ED Caveat: Intoxicated (under the influence) History Per: Patient History/Exam Limitations: no limitations Suicide/Self Injury Attempted (Context): None Involuntary Hold By: Local Law Enforcement Additional Complaint(s): 37 year old female presents to ED under police custody for possible substance abuse. Patient states that she hit her head but does not verbalize how. Also notes that her left hand was caught in a zipper, injuring her. PCP: Unknown Past Medical History Reviewed: Historical Data, Nursing Documentation, Vital Signs Vital Signs: Last Vital Signs Temp 98.3 F 10/31/17 19:17 Pulse 94 H 10/31/17 20:08 Resp 21 10/31/17 20:08 BP 167/92 H 10/31/17 19:17 Pulse Ox 99 10/31/17 20:08 - Medical History PMH: Back Problems, Depression Denies: Chronic Kidney Disease - Surgical History Surgical History: (x 1) - Family History Family History: States: Unknown Family Hx - Living Arrangements Living Arrangements: With Family - Social History Drugs: Cannabis, Cocaine, Opiates - Home Medications Home Medications: Ambulatory Orders Medication Instructions Recorded Clindamycin [Cleocin] 450 mg PO TID #30 ml 04/05/17 Lactobacillus Acidophilus [Bacid 1 cap PO BID #20 cap 04/05/17 Acidophilus] - Allergies Allergies/Adverse Reactions: Allergies Allergy/AdvReac Type Severity Reaction Status Date / Time No Known Drug Allergies Allergy Verified 08/15/16 03:03 Penicillins AdvReac yeast Verified 08/15/16 00:15 infection Review of Systems ROS Statement: Except As Marked, All Systems Reviewed And Found Negative Musculoskeletal: Positive for: Hand Pain (left hand), Other (head pain) Physical Exam - Reviewed Nursing Documentation Reviewed: Yes Vital Signs Reviewed: Yes - Physical Exam Appears: Positive for: Non-toxic, No Acute Distress Head Exam: Positive for: ATRAUMATIC Skin: Positive for: Normal Color, Warm, Dry Cardiovascular/Chest: Positive for: Regular Rate, Rhythm. Negative for: Tachycardia Respiratory: Positive for: Normal Breath Sounds. Negative for: Respiratory Distress Extremity: Positive for: Normal ROM, Other (left hand: 2 1mm puncture mohr on the posterior wrist - no active bleeding, induration, or signs of infection). Negative for: Deformity Neurologic/Psych: Positive for: Alert (resposive to verbal stimuli). Negative for: Motor/Sensory Deficits (moving all extremities) - ECG O2 Sat by Pulse Oximetry: 99 (RA) Pulse Ox Interpretation: Normal Medical Decision Making Medical Decision Makin Initial impression: drug abuse Initial plan: * CT HEAD * EtOH serum * UDrug screen * UPreg 2134 * serum 0000 Patient signed over to Dr. Pierce pending sobriety, reeval, and crisis evaluation. Scribe Attestation: Documented by Eileen Wetzel acting as a scribe Mayte Franks MD. Scribe Attestation: All medical record entries made by the Scribe were at my direction and personally dictated by me. I have reviewed the chart and agree that the record accurately reflects my personal performance of the history, physical exam, medical decision making, and the department course for this patient. I have also personally directed, reviewed, and agree with the discharge instructions and disposition. Disposition - Patient ED Disposition Is Patient to be Admitted: Transfer of Care - Disposition Disposition: Transfer of Care Disposition Time: 00:00 Forms: [employer] (Armenian) Patient Signed Over To: Britton Pierec Handoff Comments: pending sobriety, reeval, and crisis evaluation
--- NOTE | 2017-10-31 23:40 | CT ---
EXAM: CT Head Without Intravenous Contrast CLINICAL HISTORY: 37 years old, female; Injury or trauma; Injury AMS. Possible injury/ possible substance abuse. HX drug abuser; Initial encounter; Laceration; Consciousness not specified; Without residual foreign body; Head, generalized; Injury date: Today? ; Additional info: Head injury TECHNIQUE: Axial computed tomography images of the head/brain without intravenous contrast. All CT scans at this facility use one or more dose reduction techniques, viz.: automated exposure control; ma/kV adjustment per patient size (including targeted exams where dose is matched to indication; i.e. head); or iterative reconstruction technique. Coronal and sagittal reformatted images were created and reviewed. COMPARISON: No relevant prior studies available. FINDINGS: Brain: No intracranial hemorrhage. 0.4 x 0.3 x 0.4 cm dural calcification vs calcified meningioma along left middle cranial fossa. No edema. Ventricles: No hydrocephalus. Bones/joints: No acute fracture. Soft tissues: Unremarkable. Sinuses: Scattered minimal mucosal thickening. Mastoid air cells: No mastoid effusion. Orbits: Unremarkable as visualized. IMPRESSION: 1. No intracranial hemorrhage. 2. Incidental/non-acute findings are described above.
--- NOTE | 2017-11-01 00:44 | ED PDOC ---
- ECG O2 Sat by Pulse Oximetry: 99 (RA) Medical Decision Making Medical Decision Making: Time: 00:00 Patient signed over to me by Dr. Franks pending sobriety, reevaluation, and crisis evaluation. Time: 01:30 Patient evaluated by crisis and is medically and psychiatrically cleared for discharge. Scribe Attestation: Documented by Myron Cadena, acting as a scribe for Britton Pierce MD. Provider Scribe Attestation: All medical record entries made by the Scribe were at my direction and personally dictated by me. I have reviewed the chart and agree that the record accurately reflects my personal performance of the history, physical exam, medical decision making, and the department course for this patient. I have also personally directed, reviewed, and agree with the discharge instructions and disposition. Disposition Counseled Patient/Family Regarding: Studies Performed, Diagnosis - Clinical Impression Clinical Impression: Polysubstance abuse, Adjustment disorder - POA Present On Arrival: None - Disposition Disposition: Discharged/Transfer to Law Enforcement Disposition Time: 01:30 Condition: STABLE Additional Instructions: Patient is medically and psychiatrically stable for incarceration Instructions: Adjustment Disorder, Polysubstance Abuse Forms: [employer] (Cypriot)
== END 2017-11-01 02:34 ==
LOC: H.ER 19:07
DX: F19.10 Other psychoactive substance abuse, uncomplicated (principal); F43.20 Adjustment disorder, unspecified; S09.90XA Unspecified injury of head, initial encounter; W22.8XXA Striking against or struck by other objects, initial encounter; Y92.89 Other specified places as the place of occurrence of the external cause; F32.9 Major depressive disorder, single episode, unspecified; Z88.0 Allergy status to penicillin
CPT/HCPCS: 70450; 84702; 99283; G0480

== ENCOUNTER 2017-12-30 15:23 | Emergency (ER) | payer SELFPAY ==
[2017-12-30 15:23] VITALS: BMI 26.5
[2017-12-30] MEDS ORDERED: Sodium Chloride 0.9% 1,000 ML IV STA ×2 (15:42→17:12)
--- NOTE | 2017-12-30 15:56 | ED PDOC ---
HPI: Altered Mental Status Time Seen by Provider: 12/30/17 15:38 Chief Complaint (Nursing): Altered Mental Status Chief Complaint (Provider): altered mental status History Per: Patient (37 y/o female h/o IVDA/polysubstance abuse brought by police for altered mental status. Patient denies any injury or pain. Admits to marijuana "possibly laced with cocaine" use. Notes left hand pain. Was noted to have a fall 1 week ago but states no complaints from that day.) Past Medical History Reviewed: Historical Data, Nursing Documentation, Vital Signs Vital Signs: Last Vital Signs Temp 98.8 F 12/30/17 15:29 Pulse 149 H 12/30/17 15:29 Resp 22 12/30/17 15:29 BP 122/91 H 12/30/17 15:29 Pulse Ox 93 L 12/30/17 15:29 - Medical History PMH: Back Problems, Depression Denies: Diabetes, Hepatitis, HIV, HTN, Chronic Kidney Disease, Seizures, Sexually Transmitted Disease - Surgical History Surgical History: (x 1) - Family History Family History: States: Unknown Family Hx - Home Medications Home Medications: Ambulatory Orders Medication Instructions Recorded Unobtainable 12/30/17 - Allergies Allergies/Adverse Reactions: Allergies Allergy/AdvReac Type Severity Reaction Status Date / Time aspirin [From Percodan] Allergy RASH Verified 12/30/17 15:29 oxycodone [From Percodan] Allergy RASH Verified 12/30/17 15:29 Review of Systems ROS Statement: Except As Marked, All Systems Reviewed And Found Negative Physical Exam - Reviewed Nursing Documentation Reviewed: Yes Vital Signs Reviewed: Yes - Physical Exam Appears: Positive for: Well, Non-toxic, No Acute Distress Head Exam: Positive for: ATRAUMATIC, NORMAL INSPECTION, NORMOCEPHALIC Skin: Positive for: Normal Color, Warm, DRY Eye Exam: Positive for: EOMI, Normal appearance, PERRL ENT: Positive for: Normal ENT Inspection Neck: Positive for: Normal, Painless ROM Cardiovascular/Chest: Positive for: Regular Rate, Rhythm Respiratory: Positive for: CNT, Normal Breath Sounds Gastrointestinal/Abdominal: Positive for: Normal Exam, Soft Back: Positive for: Normal Inspection Extremity: Positive for: Normal ROM, Tenderness (swelling/change in skin color dorsum of left hand) Neurologic/Psych: Positive for: Alert, Oriented - Laboratory Results Result Diagrams: 12/30/17 16:45 12/30/17 16:45 - ECG O2 Sat by Pulse Oximetry: 93 - Progress ED Course And Treament: NS 1 liter wide open ativan 1 mg iv x 1 Dose XRY OF LEFT HAND: NO FX ree-evaluated at 17:30 for increased agitation. ativan 2 mg iv x 1 dose haldol 5mg iv x 1 dose attempt made to calm patient in ED but unable. Placed in restrains 4 point in ED. blood work hard to obtain. venous blood gas demonstrates lactate 5. repeat temp 99.6 REPEAT PULSE RATE 103 Disposition - Clinical Impression Clinical Impression: Altered mental status, Tachycardia - Patient ED Disposition Is Patient to be Admitted: Transfer of Care - Disposition Disposition Time: 20:00 Condition: FAIR Forms: [employer] (Kosovan) Patient Signed Over To: Aparna Agrawal Handoff Comments: PENDING URINE TOX; RE-EVALUATION; REPEAT LACTATE AFTER 2 LITERS
[2017-12-30 16:58] LABS: BASO % 0.2 % (0.0-2.0); EOS % 0.1 % (0.0-4.0); HEMOGLOBIN 13.3 g/dL (12.0-16.0); LYMPH # 1.2 K/uL (1.0-4.3); LYMPH % 6.7 % (20.0-40.0); MEAN CELL VOLUME 81.7 fl (81.0-99.0); MEAN CORPUSCULAR HGB CONC 33.1 g/dL (33.0-37.0); MEAN PLATELET VOLUME 7.9 fl (7.2-11.7); MONO % 5.7 % (0.0-10.0); NEUT % 87.3 % (50.0-75.0); PLATELET COUNT 434 K/uL (130-400); RBC 4.91 Mil/uL (3.80-5.20); RED CELL DISTRIBUTION WIDTH 14.5 % (11.5-14.5); WHITE BLOOD COUNT 17.2 K/uL (4.8-10.8)
--- NOTE | 2017-12-30 17:03 | RAD ---
PROCEDURE: Left Hand Radiographs. HISTORY: Unspecified Pain. No history of recent/ related trauma provided COMPARISON: None. FINDINGS: BONES: Normal. No fracture. JOINTS: Contracture deformities. SOFT TISSUES: Normal. OTHER FINDINGS: None. IMPRESSION: No acute findings related to/accounting for the clinical presentation.
[2017-12-30 17:09] LABS: ALB/GLOB RATIO 1.1 (1.0-2.1); ALBUMIN 4.4 g/dL (3.5-5.0); ALT/SGPT 45 U/L (9-52); AST/SGOT 55 U/L (14-36); BLOOD UREA NITROGEN 21 mg/dl (7-17); CALCIUM 9.1 mg/dL (8.4-10.2); GFR AFRICAN-AMERICAN 51; GFR NON-AFRICAN AMERICAN 42
[2017-12-30 17:58] LABS: VENOUS BLOOD GAS BASE EXCESS -5.6 mmol/L (0.0-2.0); VENOUS BLOOD GAS PCO2 39 mmHg (40-60); VENOUS BLOOD GAS PO2 67 mm/Hg (30-55); VENOUS BLOOD PH 7.32 (7.32-7.43)
[2017-12-30 18:31] LABS: BANDS 1 % (0-2); TOTAL CELLS COUNTED 100
[2017-12-30 18:32] LABS: LYMPHOCYTE 12 % (20-50); MONOCYTE 4 % (0-10); NEUTROPHIL 80 % (42-75); PLATELET ESTIMATE NORMAL (NORMAL); REACTIVE LYMPHOCYTES 3 % (0-0)
[2017-12-30 19:55] LABS: BARBITURATES, UR NEGATIVE (NEGATIVE); BENZODIAZEPINES, UR NEGATIVE (NEGATIVE); OPIATES, UR POSITIVE (NEGATIVE); PHENCYCLIDINE, UR NEGATIVE (NEGATIVE)
[2017-12-30 20:00] LABS: GRANULAR CAST 17 /lpf (0-1); SQUAMOUS EPITHIAL 2 /hpf (0-5); URINE BACTERIA OCC (<OCC); URINE BILIRUBIN NEGATIVE (NEGATIVE); URINE BLOOD NEGATIVE (NEGATIVE); URINE CLARITY TURBID (Clear); URINE COLOR AMBER (YELLOW); URINE GLUCOSE (UA) 50 mg/dL (Normal); URINE HYALINE CAST >20 /hpf (0-2); URINE LEUKOCYTE ESTERASE TRACE Leu/uL (Negative); URINE PROTEIN >=500 mg/dL (NEGATIVE)
--- NOTE | 2017-12-30 21:53 | RAD ---
EXAM: XR Chest, 1 View EXAM DATE/TIME: 12/30/2017 5:13 PM CLINICAL HISTORY: 37 years old, female; Signs and symptoms; Other: Routine; Additional info: Altered mental status; psychiatric evaluation; drug user TECHNIQUE: Frontal view of the chest. COMPARISON: Prior images are not available for review. FINDINGS: Heart: The heart is normal in size. Mediastinum: Aorta is mildly uncoiled. Hilar contours are unremarkable. Vascularity: Pulmonary vascularity is normal. Lungs: Lungs are clear. Pleural spaces: There are no effusions. Osseous structures: There are no acute osseous abnormalities. There is a lucent lesion in the distal right clavicle IMPRESSION: No acute disease in the chest
--- NOTE | 2017-12-30 21:54 | ED PDOC ---
- Laboratory Results Result Diagrams: 12/30/17 16:45 12/30/17 16:45 - ECG O2 Sat by Pulse Oximetry: 93 - Radiology X-Ray: Viewed By Me, Read By Radiologist X-Ray Interpretation: No Acute Disease - Progress ED Course And Treament: Case endorsed to advertising copy writer from [employer] [facility] pending xray, repeat lactic acid after IV hydration Repeat lactic acid WNL. 21:30 Patient sleeping; no distress. Vitals stable on monitor 23:00 Patient sleeping; no distress. Vitals stable on monitor Notified by RN That IV infiltrated; left forearm with swelling. Warm compresses applied. Arm elevated 12/31/17 00:30 Patient sleeping; no distress. Vitals stable on monitor 2:00 Patient sleeping; no distress. Vitals stable on monitor 3:30 Patient sleeping; no distress. Vitals stable on monitor 5:00 Patient awake, alert, oriented x3. Ambulating steady gait Patient educated on findings, discharged with rx Macrobid (Dose given in ED) Advised follow up PMD 2-3 days. Return precautions given Disposition - Clinical Impression Clinical Impression: Polysubstance abuse, UTI (urinary tract infection) - POA Present On Arrival: None - Disposition Referrals: [facility] [Outside] Disposition: Routine/Home Disposition Time: 05:22 Condition: STABLE Prescriptions: Nitrofurantoin Macrocrystals [Macrobid] 100 mg PO BID #13 cap Instructions: Urinary Tract Infections in Adults, Polysubstance Abuse
[2017-12-31 05:38] VITALS: BP 153/99; PULSE 86; RESP 15; TEMP 98.1
[2018-01-04 20:18] VITALS: O2SAT 93
== END 2017-12-31 06:54 | disposition home or self-care (01) ==
LOC: H.ER 15:23
DX: R00.0 Tachycardia, unspecified (principal); N39.0 Urinary tract infection, site not specified; F19.10 Other psychoactive substance abuse, uncomplicated; Z86.59 Personal history of other mental and behavioral disorders; Z00.8 Encounter for other general examination; Z88.5 Allergy status to narcotic agent
CPT/HCPCS: 71045; 73130; 80053; 81003; 81025; 82803; 83605; 85025; 87040; 87086; 87149; 87181; 87205; 96374; 96375; 99285; G0480; J1630; J2060; J7040

== ENCOUNTER 2018-01-11 00:09 | Emergency (ER) | payer SELFPAY ==
[2018-01-11 00:09] VITALS: BMI 26.5
[2018-01-11 03:14] VITALS: TEMP 98.2
--- NOTE | 2018-01-11 04:20 | ED PDOC ---
HPI: Psych/Substance Abuse Time Seen by Provider: 01/11/18 00:14 Chief Complaint (Nursing): Substance Abuse Chief Complaint (Provider): Substance Abuse ED Caveat: Intoxicated History Per: Patient History/Exam Limitations: intoxication Additional Complaint(s): 37 years old female brought to the ED for evaluation of substance abuse after taking marijuana and drinking alcohol. Patient is well known to provider for previous visits to the ED related to substance abuse. She is agitated and uncooperative on arrival. PMD: non provided Past Medical History Reviewed: Historical Data, Nursing Documentation, Vital Signs Vital Signs: Last Vital Signs Temp 98.2 F 01/11/18 03:12 Pulse 102 H 01/11/18 03:12 Resp 19 01/11/18 03:12 BP 132/85 01/11/18 03:12 Pulse Ox 99 01/11/18 03:12 - Medical History PMH: Back Problems, Depression Denies: Diabetes, Hepatitis, HIV, HTN, Chronic Kidney Disease, Seizures, Sexually Transmitted Disease - Surgical History Surgical History: (x 1) - Family History Family History: States: Unknown Family Hx - Social History Current smoker - smoking cessation education provided: Yes Alcohol: > 2 Drinks/Day Drugs: Cocaine, Opiates - Home Medications Home Medications: Ambulatory Orders Medication Instructions Recorded Nitrofurantoin Macrocrystals 100 mg PO BID #13 cap 12/31/17 [Macrobid] - Allergies Allergies/Adverse Reactions: Allergies Allergy/AdvReac Type Severity Reaction Status Date / Time aspirin [From Percodan] Allergy RASH Verified 12/30/17 15:29 oxycodone [From Percodan] Allergy RASH Verified 12/30/17 15:29 Review of Systems Review Of Systems: ROS cannot be obtained secondary to pt's inabilty to answer questions. Physical Exam - Reviewed Nursing Documentation Reviewed: Yes Vital Signs Reviewed: Yes - Physical Exam Appears: Positive for: No Acute Distress Head Exam: Positive for: ATRAUMATIC, NORMOCEPHALIC Skin: Positive for: Normal Color, Warm, Dry Eye Exam: Positive for: Normal appearance Neurologic/Psych: Positive for: Oriented (x1 to person), Mood/Affect (Labile) - ECG O2 Sat by Pulse Oximetry: 99 (RA) Pulse Ox Interpretation: Normal Medical Decision Making Medical Decision Making: Time: 0015 Initial Impression: 37 years old intoxicated female with substance abuse. High risk of elopement. Initial Plan: --Alcohol Serum --Urine drug screen --Urine dipstick --Urine --Glucose, POD --Haldol 5 mg IM --Ativan 2 mg IM --1:1 observation Time: 0700 Patient is transferred from my care to Dr. Gustafson pending sobriety. Scribe Attestation: Documented by Kinjal Lockwood, acting as a scribe for Britton Pierce MD. Provider Scribe Attestation: All medical record entries made by the Scribe were at my direction and personally dictated by me. I have reviewed the chart and agree that the record accurately reflects my personal performance of the history, physical exam, medical decision making, and the department course for this patient. I have also personally directed, reviewed, and agree with the discharge instructions and disposition Disposition - Clinical Impression Clinical Impression: Polysubstance abuse - Disposition Disposition: Transfer of Care Disposition Time: 07:00 Condition: STABLE Instructions: Polysubstance Abuse Forms: [employer] (Tajik)
--- NOTE | 2018-01-11 07:10 | ED PDOC ---
- ECG O2 Sat by Pulse Oximetry: 99 (RA) Medical Decision Making Medical Decision Making: Patient signed to be @[address] Pierce, pending sobriety. 1130 am pt awake and alert, ambulating with steady gait. urine tox noted. pt stable for dc. Scribe Attestation: Documented by Phi Rain, acting as a scribe for Dr. Iwona Gustafson MD Provider Scribe Attestation: All medical record entries made by the Scribe were at my direction and personally dictated by me. I have reviewed the chart and agree that the record accurately reflects my personal performance of the history, physical exam, medical decision making, and the department course for this patient. I have also personally directed, reviewed, and agree with the discharge instructions and disposition. Disposition Counseled Patient/Family Regarding: Studies Performed, Diagnosis, Need For Followup - Clinical Impression Clinical Impression: Polysubstance abuse - POA Present On Arrival: None - Disposition Disposition: Routine/Home Disposition Time: 11:30 Condition: IMPROVED Instructions: Polysubstance Abuse Forms: [employer] (Arabic)
[2018-01-11 09:49] VITALS: BP 147/82; PULSE 74; RESP 19
[2018-01-11 11:01] LABS: BARBITURATES, UR NEGATIVE (NEGATIVE)
[2018-01-11 11:03] LABS: BENZODIAZEPINES, UR NEGATIVE (NEGATIVE); OPIATES, UR POSITIVE (NEGATIVE); PHENCYCLIDINE, UR NEGATIVE (NEGATIVE)
[2018-01-11 12:32] VITALS: O2SAT 99
== END 2018-01-11 12:10 | disposition home or self-care (01) ==
LOC: H.ER 00:09
DX: F19.10 Other psychoactive substance abuse, uncomplicated (principal); F32.9 Major depressive disorder, single episode, unspecified; Z88.5 Allergy status to narcotic agent; F17.200 Nicotine dependence, unspecified, uncomplicated
CPT/HCPCS: 81025; 82948; 96372; 99285; G0480; J1630; J2060

== ENCOUNTER 2018-10-06 04:42 | Observation (INO) | payer SELFPAY ==
[2018-10-06 04:43] VITALS: BMI 26.5
[2018-10-06 05:00] VITALS: O2SAT 98
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
[2018-10-06 06:21] LABS: VENOUS BLOOD GAS BASE EXCESS 1.4 mmol/L (0.0-2.0); VENOUS BLOOD GAS PCO2 52 mmHg (40-60); VENOUS BLOOD GAS PO2 49 mm/Hg (30-55); VENOUS BLOOD PH 7.34 (7.32-7.43)
[2018-10-06 06:44] LABS: BASO # 0.1 K/uL (0.0-0.2); BASO % 0.9 % (0.0-2.0); EOS # 0.1 K/uL (0.0-0.7); EOS % 1.4 % (0.0-4.0); HEMOGLOBIN 12.5 g/dL (12.0-16.0); LYMPH # 2.3 K/uL (1.0-4.3); LYMPH % 30.8 % (20.0-40.0); MEAN CELL VOLUME 81.8 fl (81.0-99.0); MEAN CORPUSCULAR HEMOGLOBIN 27.3 pg (27.0-31.0); MEAN CORPUSCULAR HGB CONC 33.4 g/dL (33.0-37.0); MEAN PLATELET VOLUME 8.3 fl (7.2-11.7); MONO # 0.6 K/uL (0.0-0.8); MONO % 8.5 % (0.0-10.0); NEUT # 4.3 K/uL (1.8-7.0); NEUT % 58.4 % (50.0-75.0); NRBC % 0.1 % (0.0-0.0); RBC 4.6 Mil/uL (3.80-5.20); RED CELL DISTRIBUTION WIDTH 14.7 % (11.5-14.5); WHITE BLOOD COUNT 7.4 K/uL (4.8-10.8)
[2018-10-06] MEDS ORDERED: Clindamycin 600mg/50ml D5W 600 MG/50 ML VIAL IVPB STA (06:47)
[2018-10-06 06:48] LABS: PROTHROMBIN TIME 11.5 Seconds (9.8-13.1)
[2018-10-06 06:51] LABS: BLOOD UREA NITROGEN 27 mg/dl (7-17); GFR NON-AFRICAN AMERICAN > 60; PARTIAL THROMBOPLASTIN TIME 34.1 Seconds (25.6-37.1)
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
[2018-10-06] MEDS ORDERED: Cefepime 1 GM in Sodium Chloride 0.9% 100 ML IVPB STA (07:48)
[2018-10-06 09:02] VITALS: BP 147/97; PULSE 83; RESP 18; TEMP 97.4
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
== END 2018-10-06 20:28 | disposition left against medical advice (07) ==
LOC: H.ER 04:42 → H.L&D 07:42
PROVIDERS: ADMIT Internal Medicine; ATTEND Internal Medicine
DX: L03.113 Cellulitis of right upper limb (principal); F11.10 Opioid abuse, uncomplicated; F19.90 Other psychoactive substance use, unspecified, uncomplicated; S09.90XA Unspecified injury of head, initial encounter; R51 Headache; X58.XXXA Exposure to other specified factors, initial encounter
CPT/HCPCS: 70450; 73130; 80048; 81025; 82803; 85025; 85610; 85730; 87040; 96365; 99284; G0378